=== PATIENT | male | born 1950 | race Asian ===

== ENCOUNTER 2018-01-18 15:10 | Emergency (ER) | payer MEDICARE, MEDICAID ==
[~2018-01-18] VITALS: Ht 162.6 cm; Wt 68.0 kg
[2018-01-18 15:16] VITALS: Ht 162.6 cm; Wt 68.0 kg
[2018-01-18 16:09] LABS: BASOPHIL % 0.7 % (0-2); PLATELET COUNT 229 x10^3mcL (130-400); RED CELL DISTRIBUTION WIDTH 13.6 % (11.5-14.5)
[2018-01-18 16:21] LABS: CALCIUM 9.3 mg/dL (8.5-10.1); CARBON DIOXIDE 28.7 mmol/L (21-32); CREATININE SERUM 1.8 mg/dL (0.7-1.3); POTASSIUM SERUM 3.7 mmol/L (3.5-5.1)
[2018-01-18 16:26] LABS: BILIRUBIN TOTAL 0.55 mg/dL (0.20-1.00); TOTAL PROTEIN, SERUM 6.4 g/dL (6.4-8.2)
[2018-01-18 16:36] LABS: ALBUMIN 2.8 g/dL (3.4-5.0)
[2018-01-18 16:53] LABS: microscopic required? YES; urine erythrocyte 2+ (NEGATIVE)
[2018-01-18 18:45] VITALS: BP 150/87
== END 2018-01-18 19:08 | disposition home or self-care (01) ==
LOC: ED 15:10
PROVIDERS: Emergency Medicine
DX: K59.00 Constipation, unspecified (principal); E11.22 Type 2 diabetes mellitus with diabetic chronic kidney disease; I12.9 Hypertensive chronic kidney disease with stage 1 through stage 4 chronic kidney disease, or unspecified chronic kidney disease; N18.9 Chronic kidney disease, unspecified; E78.00 Pure hypercholesterolemia, unspecified
CPT/HCPCS: 83880; J1885; Q0092